=== PATIENT | male | born 1940 | race Caucasian/White ===

== ENCOUNTER 2017-12-28 11:39 | Emergency (ER) | payer MEDICARE ==
[~2017-12-28] VITALS: Ht 175.3 cm; Wt 83.6 kg
[~2017-12-28 11:39] MED LIST: BLOOD GLUCOSE MONITO XX; BLOOD GLUCOSE TEST S XX; CIALIS20 MG PO; ENALAPRIL5 MG PO; FENOFIBRATE134 MG PO; FLUARIX QUADRIV1 IN1 IM; FLUARIX QUADRIV1 INJ IM; FLUTICASONE50 MCG; FLUZONE SPLT1 M1 IM; FUROSEMIDE20 MG PO; GABAPENTIN300 MG PO; GLIPIZIDE ER10 M1 PO; METFORMIN HCL500 MG PO; PLAVIX75 MG PO; PNEUMOVAX 23 IM; POLYSPORIN3.5 GM OP; PRANDIN PO; PRAVASTATIN40 MG PO
[2017-12-28] MEDS ORDERED: CYMBALTA30 MG PO (12:02)
[2017-12-28] MEDS ORDERED: CARVEDILOL25 MG PO (12:04)
[2017-12-28] MEDS ORDERED: ENALAPRIL10 MG PO (12:07)
[2017-12-28] MEDS ORDERED: ADULT ASPIRIN R81 MG PO (12:07)
[2017-12-28] MEDS ORDERED: REPAGLINIDE0.5 MG PO (12:08)
[2017-12-28] MEDS ORDERED: FUROSEMIDE20 MG PO (12:08)
[2017-12-28] MEDS ORDERED: KEFLEX500 M1 PO (13:33)
[2017-12-28 13:38] VITALS: BP 128/62
== END 2017-12-28 13:38 | disposition home or self-care (01) ==
LOC: ED 11:39
PROC: 0HQ1XZZ Repair Face Skin, External Approach (ICD-10-PCS; principal; 2017-12-28)
DX: S01.112A Laceration without foreign body of left eyelid and periocular area, initial encounter (principal); I10 Essential (primary) hypertension; E11.9 Type 2 diabetes mellitus without complications; E78.5 Hyperlipidemia, unspecified; W18.30XA Fall on same level, unspecified, initial encounter; Y93.55 Activity, bike riding; Y92.410 Unspecified street and highway as the place of occurrence of the external cause; Z86.73 Personal history of transient ischemic attack (TIA), and cerebral infarction without residual deficits

== ENCOUNTER 2018-02-28 16:28 | Emergency (ER) | payer MEDICARE ==
[~2018-02-28] VITALS: Ht 175.3 cm; Wt 82.0 kg
[~2018-02-28 16:28] MED LIST changes: +ADULT ASPIRIN R81 MG PO; +CARVEDILOL25 MG PO; +CYMBALTA30 MG PO; +ENALAPRIL10 MG PO; +KEFLEX500 M1 PO; +REPAGLINIDE0.5 MG PO
[2018-02-28 16:54] LABS: HEMATOCRIT 38.1 % (39.0-50.0); HEMOGLOBIN 12.9 g/dl (14.0-18.0); IMMATURE GRANULOCYTES 0.2 % (0.0-5.0); MEAN CELL VOLUME 94.1 fL CALC (80.0-100.0); MEAN CORPUSCULAR HGB 31.9 pG CALC (26.0-32.0); MEAN CORPUSCULAR HGB CONC 33.9 g/L CALC (32.0-36.0); NEUT# 8.24 thou/uL (1.82-7.42); RED BLOOD COUNT 4.05 mill/uL (4.70-6.10); RED CELL DISTRI WIDTH 13.2 % (11.5-15.5)
[2018-02-28 17:13] LABS: URINE BILIRUBIN - DIPSTICK NEGATIVE (NEGATIVE); URINE BLOOD DIPSTICK NEGATIVE (NEGATIVE); URINE COLOR YELLOW; URINE GLUCOSE - DIPSTICK NEGATIVE (NEGATIVE); URINE KETONE NEGATIVE (NEGATIVE); URINE LEUK ESTERASE NEGATIVE (NEGATIVE); URINE NITRITE - DIPSTICK NEGATIVE (Negative); URINE PROTEIN - DIPSTICK NEGATIVE (NEG-TRACE); URINE UROBILINOGEN - DIPSTICK 0.2 E.U./dL (0.2)
[2018-02-28 17:14] LABS: URINE CLARITY CLEAR
[2018-02-28 17:29] LABS: ALBUMIN 3.8 g/dL (3.2-5.0); ALKALINE PHOSPHATASE 57 u/l (38-126); BILIRUBIN, TOTAL 0.5 mg/dL (0.0-1.4); BUN 17 mg/dL (8-23); BUN/CREATININE RATIO 21 (12-20 (CALC)); CARBON DIOXIDE 26 mmol/l (22-30); CHLORIDE 105 mmol/l (95-108); CPK 91 u/l (52-200); CREATININE 0.8 mg/dL (0.7-1.3); GFR > 60 ML/MIN (>=60 (CALC)); GFR FOR AFR.AMER. > 60 ML/MIN (>=60 (CALC)); SGOT/AST 18 u/l (19-48); SGPT/ALT 24 u/l (11-66); SODIUM 141 mmol/l (137-146); TOTAL PROTEIN 6.4 g/dL (6.3-8.2)
[2018-02-28 17:30] LABS: ANION GAP 14 (6-22 (CALC)); POTASSIUM 4.1 mmol/l (3.5-5.1)
[2018-02-28 20:00] VITALS: BP 156/72
== END 2018-02-28 20:00 | disposition home or self-care (01) ==
LOC: ED 16:28
DX: S40.812A Abrasion of left upper arm, initial encounter (principal); E11.9 Type 2 diabetes mellitus without complications; I10 Essential (primary) hypertension; E78.5 Hyperlipidemia, unspecified; W01.0XXA Fall on same level from slipping, tripping and stumbling without subsequent striking against object, initial encounter; Y92.009 Unspecified place in unspecified non-institutional (private) residence as the place of occurrence of the external cause; Z86.73 Personal history of transient ischemic attack (TIA), and cerebral infarction without residual deficits

== ENCOUNTER → 2018-08-25 | Outpatient (REF) | payer MEDICARE, OTHER | END | disposition home or self-care (01) | LOC: CT 13:34 | PROVIDERS: ATTEND Neurological Surgery | DX: S06.5X9D Traumatic subdural hemorrhage with loss of consciousness of unspecified duration, subsequent encounter (principal) ==

== ENCOUNTER 2019-01-24 15:20 | Observation (INO) | payer MEDICARE, OTHER ==
[~2019-01-24] VITALS: Ht 175.3 cm; Wt 67.3 kg
[2019-01-24 16:14] LABS: HEMATOCRIT 41.4 % (39.0-50.0); HEMOGLOBIN 13.9 g/dl (14.0-18.0); IMMATURE GRANULOCYTES 0.5 % (0.0-5.0); MEAN CELL VOLUME 93.2 fL CALC (80.0-100.0); MEAN CORPUSCULAR HGB 31.3 pG CALC (26.0-32.0); MEAN CORPUSCULAR HGB CONC 33.6 g/L CALC (32.0-36.0); NEUT# 8.98 thou/uL (1.82-7.42); RED BLOOD COUNT 4.44 mill/uL (4.70-6.10); RED CELL DISTRI WIDTH 13.2 % (11.5-15.5)
[2019-01-24 16:29] LABS: ALBUMIN 4.3 g/dL (3.2-5.0); ALKALINE PHOSPHATASE 60 u/l (38-126); ANION GAP 16 (6-22 (CALC)); BILIRUBIN, TOTAL 0.4 mg/dL (0.0-1.4); BUN 20 mg/dL (8-23); BUN/CREATININE RATIO 16 (12-20 (CALC)); CARBON DIOXIDE 29 mmol/l (22-30); CHLORIDE 98 mmol/l (95-108); CREATININE 1.2 mg/dL (0.7-1.3); GFR 59 ML/MIN (>=60 (CALC)); GFR FOR AFR.AMER. > 60 ML/MIN (>=60 (CALC)); POTASSIUM 3.7 mmol/l (3.5-5.1); SGOT/AST 22 u/l (19-48); SODIUM 139 mmol/l (137-146); TOTAL PROTEIN 7.5 g/dL (6.3-8.2)
[2019-01-24 16:56] LABS: PROTHROMBIN TIME 10.3 SECONDS (9.0-12.5)
[2019-01-24] MEDS ORDERED: CYMBALTA60 MG PO (18:21)
[2019-01-24] MEDS ORDERED: ASPIRIN81 MG PO (18:21)
[2019-01-24] MEDS ORDERED: CLOPIDOGREL75 MG PO (18:22)
[2019-01-24] MEDS ORDERED: CRESTOR40 MG PO (18:22)
[2019-01-24] MEDS ORDERED: ALDACTONE50 MG PO (18:22)
[2019-01-24] MEDS ORDERED: FAMOTIDINE20 M1 PO (18:23)
[2019-01-24] MEDS ORDERED: METOPROL TAR25 MG PO (18:24)
[2019-01-24] MEDS ORDERED: KEPPRA100 MG/ML PO (18:24)
[2019-01-24] MEDS ORDERED: FUROSEMIDE20 MG PO (18:25)
[2019-01-24] MEDS ORDERED: METFORMIN HCL850 MG PO (18:25)
[2019-01-24] MEDS ORDERED: REPAGLINIDE0.5 MG PO (18:26)
[2019-01-24 18:55] VITALS: BP 122/64
[2019-01-25 00:12] VITALS: BP 108/51
[2019-01-25 04:18] VITALS: BP 147/58
[2019-01-25 04:54] LABS: HEMATOCRIT 39.8 % (39.0-50.0); HEMOGLOBIN 13.5 g/dl (14.0-18.0); IMMATURE GRANULOCYTES 0.9 % (0.0-5.0); MEAN CELL VOLUME 92.3 fL CALC (80.0-100.0); MEAN CORPUSCULAR HGB 31.3 pG CALC (26.0-32.0); MEAN CORPUSCULAR HGB CONC 33.9 g/L CALC (32.0-36.0); NEUT# 7.52 thou/uL (1.82-7.42); RED BLOOD COUNT 4.31 mill/uL (4.70-6.10); RED CELL DISTRI WIDTH 12.9 % (11.5-15.5)
[2019-01-25 05:03] LABS: ANION GAP 10 (6-22 (CALC)); BUN 16 mg/dL (8-23); BUN/CREATININE RATIO 17 (12-20 (CALC)); CARBON DIOXIDE 29 mmol/l (22-30); CHLORIDE 104 mmol/l (95-108); CREATININE 0.9 mg/dL (0.7-1.3); GFR > 60 ML/MIN (>=60 (CALC)); GFR FOR AFR.AMER. > 60 ML/MIN (>=60 (CALC)); POTASSIUM 3.6 mmol/l (3.5-5.1); SODIUM 139 mmol/l (137-146)
[2019-01-25 08:00] VITALS: BP 150/58
[2019-01-25 11:15] VITALS: BP 164/76
== END 2019-01-25 12:50 ==
LOC: ED 15:20 → ED-I 17:22 → ED 17:39 → MS2 17:40
PROVIDERS: Emergency Medicine; ADMIT Internal Medicine; ATTEND Internal Medicine
DX: I95.9 Hypotension, unspecified (principal); E86.0 Dehydration; I10 Essential (primary) hypertension; E11.9 Type 2 diabetes mellitus without complications; E78.5 Hyperlipidemia, unspecified; I25.10 Atherosclerotic heart disease of native coronary artery without angina pectoris; F41.9 Anxiety disorder, unspecified; S00.81XA Abrasion of other part of head, initial encounter; S80.212A Abrasion, left knee, initial encounter; S80.211A Abrasion, right knee, initial encounter; S60.414A Abrasion of right ring finger, initial encounter; S60.416A Abrasion of right little finger, initial encounter; S60.413A Abrasion of left middle finger, initial encounter; S60.415A Abrasion of left ring finger, initial encounter; I69.354 Hemiplegia and hemiparesis following cerebral infarction affecting left non-dominant side; F17.210 Nicotine dependence, cigarettes, uncomplicated; W19.XXXA Unspecified fall, initial encounter; Y92.099 Unspecified place in other non-institutional residence as the place of occurrence of the external cause; Z95.1 Presence of aortocoronary bypass graft; Z95.5 Presence of coronary angioplasty implant and graft; Z95.828 Presence of other vascular implants and grafts; Z79.84 Long term (current) use of oral hypoglycemic drugs

== ENCOUNTER 2019-03-04 20:54 | Emergency (ER) | payer MEDICARE, OTHER ==
[~2019-03-04] VITALS: Ht 175.3 cm; Wt 77.0 kg
[~2019-03-04 20:54] MED LIST changes: +ALDACTONE50 MG PO; +ASPIRIN81 MG PO; +CLOPIDOGREL75 MG PO; +CRESTOR40 MG PO; +CYMBALTA60 MG PO; +FAMOTIDINE20 M1 PO; +KEPPRA100 MG/ML PO; +METFORMIN HCL850 MG PO; +METOPROL TAR25 MG PO
[2019-03-04 21:25] LABS: HEMATOCRIT 36.7 % (39.0-50.0); HEMOGLOBIN 12.2 g/dl (14.0-18.0); IMMATURE GRANULOCYTES 0.4 % (0.0-5.0); MEAN CELL VOLUME 95.3 fL CALC (80.0-100.0); MEAN CORPUSCULAR HGB 31.7 pG CALC (26.0-32.0); MEAN CORPUSCULAR HGB CONC 33.2 g/L CALC (32.0-36.0); NEUT# 6.72 thou/uL (1.82-7.42); RED BLOOD COUNT 3.85 mill/uL (4.70-6.10); RED CELL DISTRI WIDTH 13.5 % (11.5-15.5)
[2019-03-04 21:36] LABS: ALKALINE PHOSPHATASE 61 u/l (38-126); ANION GAP 12 (6-22 (CALC)); BILIRUBIN, TOTAL 0.5 mg/dL (0.0-1.4); BUN 21 mg/dL (8-23); BUN/CREATININE RATIO 19 (12-20 (CALC)); CARBON DIOXIDE 31 mmol/l (22-30); CHLORIDE 99 mmol/l (95-108); CREATININE 1.1 mg/dL (0.7-1.3); GFR > 60 ML/MIN (>=60 (CALC)); GFR FOR AFR.AMER. > 60 ML/MIN (>=60 (CALC)); POTASSIUM 3.2 mmol/l (3.5-5.1); SGOT/AST 18 u/l (19-48); SODIUM 139 mmol/l (137-146); TOTAL PROTEIN 6.8 g/dL (6.3-8.2)
[2019-03-04 21:48] LABS: MYOGLOBIN 41 ng/mL (0 - 121)
[2019-03-04] MEDS ORDERED: METFORMIN500 M2 PO (21:51)
[2019-03-04] MEDS ORDERED: COZAAR25 MG PO (21:57)
[2019-03-05 01:01] VITALS: BP 102/54
[2019-03-05 01:23] LABS: URINE BILIRUBIN - DIPSTICK NEGATIVE (NEGATIVE); URINE BLOOD DIPSTICK SMALL (NEGATIVE); URINE COLOR YELLOW; URINE GLUCOSE - DIPSTICK NEGATIVE (NEGATIVE); URINE KETONE 15 mg/dL (NEGATIVE); URINE LEUK ESTERASE TRACE (NEGATIVE); URINE NITRITE - DIPSTICK NEGATIVE (Negative); URINE PH 5.5 (4.5-8.0); URINE PROTEIN - DIPSTICK 100 mg/dL (NEG-TRACE); URINE UROBILINOGEN - DIPSTICK 0.2 E.U./dL (0.2)
[2019-03-05 01:39] LABS: BARBITURATES NEGATIVE (NEGATIVE); COCAINE NEGATIVE (NEGATIVE); METHADONE NEGATIVE (NEGATIVE); OXCYCODONE NEGATIVE (NEGATIVE); TETRAHYDROCANNABIONOL NEGATIVE (NEGATIVE); TRICYLIC ANTIDEPRESSANTS NEGATIVE (NEGATIVE); URINE AMORPH SEDIMENT MODERATE hpf (NONE-FER); URINE EPITHELIAL CELLS MODERATE EPI/hpf (0-FEW); URINE WBC 0-2 WBC/hpf (0-5)
== END 2019-03-05 01:02 | disposition short-term general hospital (02) ==
LOC: ED 20:54
PROVIDERS: Emergency Medicine
PROC: 0T9B70Z Drainage of Bladder with Drainage Device, Via Natural or Artificial Opening (ICD-10-PCS; principal; 2019-03-04)
DX: R56.9 Unspecified convulsions (principal); I95.9 Hypotension, unspecified; E11.9 Type 2 diabetes mellitus without complications; I10 Essential (primary) hypertension; I69.354 Hemiplegia and hemiparesis following cerebral infarction affecting left non-dominant side; Z95.1 Presence of aortocoronary bypass graft; Z79.84 Long term (current) use of oral hypoglycemic drugs

== ENCOUNTER 2019-07-06 16:45 | Emergency (ER) | payer MEDICARE, OTHER ==
[~2019-07-06] VITALS: Ht 175.3 cm; Wt 79.5 kg
[~2019-07-06 16:45] MED LIST changes: +COZAAR25 MG PO; +METFORMIN500 M2 PO
[2019-07-06 18:42] VITALS: BP 140/78
== END 2019-07-06 18:49 | disposition home or self-care (01) ==
LOC: ED 16:45
DX: S00.81XA Abrasion of other part of head, initial encounter (principal); E11.9 Type 2 diabetes mellitus without complications; I10 Essential (primary) hypertension; F17.210 Nicotine dependence, cigarettes, uncomplicated; X58.XXXA Exposure to other specified factors, initial encounter; Z95.1 Presence of aortocoronary bypass graft; Z95.5 Presence of coronary angioplasty implant and graft; Z79.84 Long term (current) use of oral hypoglycemic drugs; Z86.73 Personal history of transient ischemic attack (TIA), and cerebral infarction without residual deficits

== ENCOUNTER 2021-06-26 01:31 | Emergency (ER) | payer MEDICARE, OTHER ==
[~2021-06-26] VITALS: Ht 175.3 cm; Wt 75.0 kg
[2021-06-26 01:53] LABS: HEMATOCRIT 29.7 % (39.0-50.0); HEMOGLOBIN 9.4 g/dl (14.0-18.0); IMMATURE GRANULOCYTES 0.1 % (0.0-5.0); MEAN CELL VOLUME 91.4 fL CALC (80.0-100.0); MEAN CORPUSCULAR HGB 28.9 pG CALC (26.0-32.0); MEAN CORPUSCULAR HGB CONC 31.6 g/dL CAL (32.0-36.0); NEUT# 5.34 thou/uL (1.82-7.42); RED BLOOD COUNT 3.25 mill/uL (4.70-6.10); RED CELL DISTRI WIDTH 14.4 % (11.5-15.5)
[2021-06-26 02:07] LABS: BILIRUBIN, TOTAL 0.3 mg/dL (0.0-1.4); BUN 16 mg/dL (8-23); BUN/CREATININE RATIO 25 (12-20 (CALC)); CARBON DIOXIDE 33 mmol/l (22-30); CHLORIDE 96 mmol/l (95-108); CREATININE 0.6 mg/dL (0.7-1.3); GFR > 60 ML/MIN (>=60 (CALC)); GFR FOR AFR.AMER. > 60 ML/MIN (>=60 (CALC)); SGOT/AST 17 u/l (19-48); SODIUM 135 mmol/l (137-146); TOTAL PROTEIN 6.1 g/dL (6.3-8.2)
[2021-06-26 02:10] LABS: ALKALINE PHOSPHATASE 97 u/l (38-126); ANION GAP 10 (6-22 (CALC)); POTASSIUM 3.9 mmol/l (3.5-5.1)
[2021-06-26] MEDS ORDERED: ACETAMINOPHEN325 MG PO (02:40)
[2021-06-26] MEDS ORDERED: CLOPIDOGREL75 MG PO (02:41)
[2021-06-26] MEDS ORDERED: DILT-XR240 MG PO (02:42)
[2021-06-26] MEDS ORDERED: [UNRECOGNIZED DRUG - OTHER] PO (02:43)
[2021-06-26] MEDS ORDERED: DRIZALMA SPRINK60 MG PO (02:45)
[2021-06-26] MEDS ORDERED: VITAMIN D1.25 MG PO (02:47)
[2021-06-26] MEDS ORDERED: FAMOTIDINE20 M1 PO (02:47)
[2021-06-26] MEDS ORDERED: INSULIN LI100 UNIT/1 (02:48)
[2021-06-26] MEDS ORDERED: LEVETIRACETAM1000 MG PO (03:00)
[2021-06-26] MEDS ORDERED: MILK OF MAG30 ML/UDC PO (03:02)
[2021-06-26] MEDS ORDERED: METFORMIN HCL500 M2 PO (03:02)
[2021-06-26] MEDS ORDERED: POLY GLYCOL3350 MG PO (03:03)
[2021-06-26] MEDS ORDERED: MULTI VIT PO (03:03)
[2021-06-26] MEDS ORDERED: REPAGLINIDE0.5 MG PO (03:06)
[2021-06-26] MEDS ORDERED: VITAMIN D31000 UNI1 PO (03:07)
[2021-06-26 03:13] VITALS: BP 100/59
== END 2021-06-26 04:10 ==
LOC: ED 01:31
PROVIDERS: Family Medicine
DX: I10 Essential (primary) hypertension (principal); E11.9 Type 2 diabetes mellitus without complications; E78.5 Hyperlipidemia, unspecified; F17.200 Nicotine dependence, unspecified, uncomplicated; Z95.1 Presence of aortocoronary bypass graft; Z95.5 Presence of coronary angioplasty implant and graft; Z86.73 Personal history of transient ischemic attack (TIA), and cerebral infarction without residual deficits

== ENCOUNTER 2023-03-16 11:37 | Observation (INO) | payer MEDICARE, OTHER ==
[2023-03-16] VITALS (34 sets, daily range): BP systolic 106–181; BP diastolic 49–102
[~2023-03-16] VITALS: Ht 177.8 cm; Wt 68.0 kg
[~2023-03-16 11:37] MED LIST changes: +ACETAMINOPHEN325 MG PO; +ARICEPT PO; +DILT-XR240 MG PO; +DRIZALMA SPRINK60 MG PO; +INSULIN LI100 UNIT/1; +LEVETIRACETAM1000 MG PO; +METFORMIN HCL500 M2 PO; +MILK OF MAG30 ML/UDC PO; +MULTI VIT PO; +POLY GLYCOL3350 MG PO; +TIZANIDINE2 MG PO; +VITAMIN D1.25 MG PO; +VITAMIN D31000 UNI1 PO; +[UNRECOGNIZED DRUG - OTHER] PO
--- NOTE | 2023-03-16 11:40 | NUR ---
PT TO ROOM 6 VIA EMS STRETCHER, REPORT RECEIVED, CALL LIGHT IN REACH, EKG, IV, LABS OBTAINED, NAD NOTED PT A&O X3 ABLE TO ANSWER QUESTIONS APPROPRIATELY, FAMILY TO ROOM, PROVIDER NOTIFIED.
--- NOTE | 2023-03-16 12:09 | NUR ---
DOUBLE ENDING MACHINE OPERATOR IN ROOM WITH PATIENT.
--- NOTE | 2023-03-16 12:28 | NUR ---
NIH STROKE COPLETED. DEFICITS NOTED. DEFICITS ARE PRESENT FROM PREVIOUS STROK. FAMILY STATES NO NEW DEFICITS PRESENT.
[2023-03-16 12:35] LABS: BASO% 0.3 % (0-3); EOS% 1.7 % (0-8); HEMATOCRIT 33.6 % (39.0-50.0); HEMOGLOBIN 10.7 g/dl (14.0-18.0); IMMATURE GRANULOCYTES 0.3 % (0.0-5.0); LYMPH% 14.9 % (15-41); MEAN CELL VOLUME 96.6 fL CALC (80.0-100.0); MEAN CORPUSCULAR HGB 30.7 pG CALC (26.0-32.0); MEAN CORPUSCULAR HGB CONC 31.8 g/dL CAL (32.0-36.0); MONO% 7.3 % (2-13); NEUT# 6.69 thou/uL (1.82-7.42); NEUT% 75.5 % (42-76); RED BLOOD COUNT 3.48 mill/uL (4.70-6.10); RED CELL DISTRI WIDTH 13.3 % (11.5-15.5)
[2023-03-16 12:50] LABS: PROTHROMBIN TIME 9.8 SECONDS (9.0-12.5)
[2023-03-16 12:54] LABS: C-REACTIVE PROTEIN 1.5 mg/dL (0-0.9); CREATININE 1.8 mg/dL (0.7-1.3); POTASSIUM 3.5 mmol/l (3.5-5.1)
[2023-03-16 12:55] LABS: ALBUMIN 3.8 g/dL (3.2-5.0); BILIRUBIN, TOTAL 0.5 mg/dL (0.2-1.3); TOTAL PROTEIN 7.5 g/dL (6.3-8.2)
--- NOTE | 2023-03-16 13:25 | NUR ---
PT DOWN TO CT.
--- NOTE | 2023-03-16 13:38 | NUR ---
PT RETURN FROM CT
--- NOTE | 2023-03-16 14:14 | NUR ---
2 ATTEMPTS MADE TO STRAIGHT CATH PT. UNABLE TO PULL [place] BACK ALL THE WAY TO HAVE VIEW OF [place]. PT TOLERATED WELL. PT STATES HE FEEL SLIKE HE HAS TO PEE. EXTERNAL MALE CATHETER PLACED.
--- NOTE | 2023-03-16 15:00 | NUR ---
PT FAMILY AT BEDSIDE TO CHECK UP. PT AND FAMILY UPDATED ON CONTINUED WAIT TIME.
--- NOTE | 2023-03-16 16:00 | NUR ---
PT DENIES NAY NEEDS. PT WATCHING TV. NO ACUTE DISTRESS NOTED.
[2023-03-16 16:31] LABS: URINE BILIRUBIN - DIPSTICK Negative (NEGATIVE); URINE BLOOD DIPSTICK Negative (NEGATIVE); URINE GLUCOSE - DIPSTICK Negative (NEGATIVE); URINE KETONE Negative (NEGATIVE); URINE LEUK ESTERASE Negative (NEGATIVE); URINE NITRITE - DIPSTICK Negative (Negative); URINE PROTEIN - DIPSTICK Trace mg/dL (NEG-TRACE); URINE UROBILINOGEN - DIPSTICK 0.2 E.U./dL (0.2)
[2023-03-16 16:41] LABS: URINE COLOR Yellow
[2023-03-16] MEDS ORDERED: BASAGLAR K100 UNIT/M (16:58)
[2023-03-16] MEDS ORDERED: CELEXA10 MG PO (16:59)
[2023-03-16] MEDS ORDERED: COLACE100 MG PO (17:00)
[2023-03-16] MEDS ORDERED: KLOR-CON M1010 MEQ PO (17:02)
[2023-03-16] MEDS ORDERED: LASIX40 MG PO (17:03)
[2023-03-16] MEDS ORDERED: ROWEEPRA500 MG (17:03)
[2023-03-16] MEDS ORDERED: MELATONIN3 M1 PO (17:04)
[2023-03-16] MEDS ORDERED: MAGNESIUM OXID400 M1 (17:04)
[2023-03-16] MEDS ORDERED: MULTI VIT PO (17:05)
[2023-03-16] MEDS ORDERED: VESICARE10 MG PO (17:05)
[2023-03-16] MEDS ORDERED: VITAMIN D-32000 UNI1 (17:06)
[2023-03-16] MEDS ORDERED: LINEZOLID100 MG/5 M (17:06)
[2023-03-16] MEDS ORDERED: FAMOTIDINE20 M1 PO (17:07)
--- NOTE | 2023-03-16 17:43 | NUR ---
PT RESTING IN BED. EYES CLOSED. NO ACUTE DISTRESS NOTED.
--- NOTE | 2023-03-16 18:44 | NUR ---
PT SAT UP IN BED FOOD TRAY PROVIDED. PT IS FEEDING HIMSELF.
--- NOTE | 2023-03-16 18:55 | NUR ---
REPORT RECEIVED. CARE ASSUMED. PATIENT RESTING ON STRETCHER, ADMITTED AND WAITING ROOM ASSIGNMENT.
--- NOTE | 2023-03-16 18:58 | NUR ---
REPORT GIVEN TO STEWARD/STEWARDESS NIGHT NURSE ELVIRA. CARE RELINQUISHED.
--- NOTE | 2023-03-16 19:20 | NUR ---
REPORT RECEIVED FROM Meena ESCOBAR RN.
--- NOTE | 2023-03-16 19:25 | NUR ---
REPORT GIVEN TO NOY JOSEPH. PATIENT READIED FOR TRANSPORT TO FLOOR.
--- NOTE | 2023-03-16 20:04 | NUR ---
PATIENT TO FLOOR VIA WHEELCHAIR, ON MONITOR WITH RN.
--- NOTE | 2023-03-17 | NUR ---
PATIENT RESTING IN BED. NO APPARENT DISTRESS NOTED. PATIENT UNABLE TO MOVE LEFT SIDE OF BODY DUE TO PRIOR STROKE. PROVIDED WITH APPLE JUICE PER REQUEST. CALL LIGHT WITHIN PATIENT REACH.
[2023-03-17 00:33] VITALS: BP 162/59
[2023-03-17 04:32] VITALS: BP 138/58
--- NOTE | 2023-03-17 04:50 | NUR ---
LAB AT BEDSIDE OBTAINING MORNING LABS.
--- NOTE | 2023-03-17 06:40 | NUR ---
pt glucose was 115 @0630
[2023-03-17 06:57] LABS: CHOLESTEROL HDL RATIO 4.7 (<4.4 (CALC)); CREATININE 1.5 mg/dL (0.7-1.3); MAGNESIUM 2.2 mg/dL (1.6-2.3); POTASSIUM 3.6 mmol/l (3.5-5.1)
[2023-03-17 07:40] VITALS: BP 137/56
[2023-03-17 08:30] LABS: HEMATOCRIT 28.2 % (39.0-50.0); HEMOGLOBIN 9.1 g/dl (14.0-18.0); MEAN CELL VOLUME 95.9 fL CALC (80.0-100.0); MEAN CORPUSCULAR HGB CONC 32.3 g/dL CAL (32.0-36.0); RED BLOOD COUNT 2.94 mill/uL (4.70-6.10); RED CELL DISTRI WIDTH 13.3 % (11.5-15.5)
--- NOTE | 2023-03-17 09:00 | NUR ---
PATIENT RESTING ASSESSMENT DONE. PATIENT NOT DISTRESS. PATIENT REPOSITIONED. RIGHT HAND TREMORS NOTED. IV FLUIDS CONNECTED WILL ENCOURAGE PO INTAKE DUE TO POSSIBLE FLUID OVERLOAD IF FLUIDS ARE NOT DISCONTINUED. PLAN OF CARE ONGOING.
[2023-03-17 11:03] VITALS: BP 161/62
--- NOTE | 2023-03-17 12:15 | NUR ---
PATIENT RESTING VISITORS AT BEDSIDE. NURSE INFORMED VISITORS OF NEEDING FACE MASK. PATIENT STATES FEELING BETTER. NO NEW CONCERNS AT THIS TIME. PLAN OF CARE ONGOING.
[2023-03-17 16:35] VITALS: BP 173/79
--- NOTE | 2023-03-17 16:35 | NUR ---
NURSE NOTICED HIGH BP INFORMED MD. STATED THAT HE WILL RESTART PATIENT'S HOME MEDS WHICH INCLUDED BP MEDS. WAITING FOR ORDERS AND WILL REASSESS BP.
--- NOTE | 2023-03-17 18:54 | NUR ---
NURSE WAS GOING TO GIVE ENEMA BUT PATIENT HAS A BM MEDIUM IN SIZE SOFT. PATIENT STATED BEING INCON OF BOTH URINE AND BM. PLAN OF CARE ONGOING.
[2023-03-17 19:25] VITALS: BP 151/77
--- NOTE | 2023-03-17 19:38 | NUR ---
REPORT RECEIVED FROM Gianni JOYA RN
--- NOTE | 2023-03-17 20:05 | NUR ---
PATIENT RESTING IN BED. INFORMED PATIENT THAT HE COULD HAVE ENEMA TONIGHT, PATIENT DECLINES, STATES HE HAD A BOWEL MOVEMENT, ACTIVE BOWEL SOUNDS X4. PATIENT REMAISN DISTENDED BUT SOFT.
--- NOTE | 2023-03-17 23:45 | NUR ---
PATIENT RESTING IN BED. NO APPARENT DISTRES NOTED. RESPIRATIONS EVEN AND UNLABORED. CALL LIGHT WITHIN REACH AND ON PATIENTS DOMINANT SIDE.
[2023-03-18 00:25] VITALS: BP 166/81
--- NOTE | 2023-03-18 03:00 | NUR ---
ABX HUNG AT THIS TIME. IV FLUSHED AND PATENT.
[2023-03-18 04:54] VITALS: BP 143/60
[2023-03-18 05:18] LABS: BASO% 0.2 % (0-3); EOS% 0.6 % (0-8); HEMATOCRIT 27.9 % (39.0-50.0); IMMATURE GRANULOCYTES 1.1 % (0.0-5.0); LYMPH% 9.3 % (15-41); MEAN CELL VOLUME 95.5 fL CALC (80.0-100.0); MEAN CORPUSCULAR HGB 30.8 pG CALC (26.0-32.0); MEAN CORPUSCULAR HGB CONC 32.3 g/dL CAL (32.0-36.0); MONO% 4.6 % (2-13); NEUT# 7.86 thou/uL (1.82-7.42); NEUT% 84.2 % (42-76); RED BLOOD COUNT 2.92 mill/uL (4.70-6.10)
[2023-03-18 05:42] LABS: ALBUMIN 3.1 g/dL (3.2-5.0); ALKALINE PHOSPHATASE 73 u/l (38-126); ANION GAP 9 (6-22 (CALC)); BILIRUBIN, TOTAL 0.4 mg/dL (0.2-1.3); BUN 23 mg/dL (8-23); BUN/CREATININE RATIO 18 (12-20 (CALC)); CARBON DIOXIDE 34 mmol/l (22-30); CHLORIDE 94 mmol/l (95-108); CREATININE 1.3 mg/dL (0.7-1.3); GFR FOR AFR.AMER. > 60 ML/MIN (>=60 (CALC)); GFR OTHER RACES 53 ML/MIN (>=60 (CALC)); POTASSIUM 3.3 mmol/l (3.5-5.1); SGOT/AST 24 u/l (19-48); SODIUM 133 mmol/l (137-146); TOTAL PROTEIN 6.3 g/dL (6.3-8.2)
[2023-03-18 07:43] VITALS: BP 149/85
--- NOTE | 2023-03-18 08:45 | NUR ---
technical proposal writer came in room to give pt his breakfast tray. pt had legs on side of bed hanging off. pt asking where his shoes are and wanting to home. pt had stool from head to toe. pt was told by technical proposal writer i am going to clean you up. pt stated im not wet and was screaming at staff. staff said yes look at the pad. pt stated ok fine. pt turned on left side by self. pt was bathed and lotioned brief and linen was changed. pt unable to turn on right side due to no ability to use left arm. technical proposal writer assisted in turning. pt was set up for breakfast after bath with double disposable chucks and a brief on pt as well. call light in reach. pt positioned to eat at this time. pt still refused a gown and has his own t-shirt on.
[2023-03-18 11:01] VITALS: BP 102/52
--- NOTE | 2023-03-18 13:22 | NUR ---
NURSE REMOVED PIV AND HEART MONITOR FOR DISCHARGE. PATIENT REPORTS NO NEW CONCERN. [facility] AWARE OF DISCHARGE PICKUP TIME AROUND 1400. NURSE GAVE SON UPDATE.
--- NOTE | 2023-03-18 14:28 | NUR ---
Discharge instructions given. Patient verbalizes understanding of same. Discharged [facility] stable [facility]. All belongings sent with pt.
== END 2023-03-18 14:21 ==
LOC: ED 11:37 → ED-I 15:00 → ED 16:05 → MS2 16:06
PROVIDERS: Nurse Practitioner; Nurse Practitioner Family; ADMIT Student in an Organized Health Care Education/Training Program; ATTEND Student in an Organized Health Care Education/Training Program
DX: R55 Syncope and collapse (principal); I95.9 Hypotension, unspecified; N17.9 Acute kidney failure, unspecified; K56.41 Fecal impaction; E86.0 Dehydration; J98.8 Other specified respiratory disorders; I12.9 Hypertensive chronic kidney disease with stage 1 through stage 4 chronic kidney disease, or unspecified chronic kidney disease; E11.22 Type 2 diabetes mellitus with diabetic chronic kidney disease; N18.9 Chronic kidney disease, unspecified; I25.10 Atherosclerotic heart disease of native coronary artery without angina pectoris; I69.354 Hemiplegia and hemiparesis following cerebral infarction affecting left non-dominant side; E78.5 Hyperlipidemia, unspecified; F41.9 Anxiety disorder, unspecified; T84.52XD Infection and inflammatory reaction due to internal left hip prosthesis, subsequent encounter; M00.052 Staphylococcal arthritis, left hip; B95.62 Methicillin resistant Staphylococcus aureus infection as the cause of diseases classified elsewhere; Y83.1 Surgical operation with implant of artificial internal device as the cause of abnormal reaction of the patient, or of later complication, without mention of misadventure at the time of the procedure; Z95.1 Presence of aortocoronary bypass graft; Z95.5 Presence of coronary angioplasty implant and graft; Z96.642 Presence of left artificial hip joint; Z79.4 Long term (current) use of insulin; Z95.828 Presence of other vascular implants and grafts
CPT/HCPCS: J2020; Q9967